=== PATIENT | male | born 1975 | race Caucasian/White ===

== ENCOUNTER 2017-07-02 19:33 | Emergency (ER) | payer BC, OTHER ==
--- NOTE | 2017-07-02 20:20 | EDM.PDOC ---
ED HPI GENERAL MEDICAL PROBLEM - General Chief Complaint: Lower Extremity Injury/Pain Stated Complaint: RIGHT LEG PAIN Time Seen by Provider: 07/02/17 19:45 Source of Information: Reports: Patient History Limitations: Reports: No Limitations - History of Present Illness INITIAL COMMENTS - FREE TEXT/NARRATIVE: Patient is a 42-year-old male with history of varicose veins to the right inner calf. States while in [place] he believes he may overexerted himself with golfing. Developed some increased swelling to the right calf and tenderness along the varicosities. Some faint redness present. Symptoms have persisted. He did participate in a stock car race and then proceeded to drive home 21 hours back to [place]. He's had increasing pain noted with mild increase in swelling noted. Does have pain along the inner aspect of his left leg up to the upper thigh. He has no history of DVT or PE. No open sores. Denies any chest pain or shortness of breath. He has no history of any hypercoagulable disorders. Does not take any medications. Nor does he have any additional past medical history. SH noncontributory. Denies smoking history and/or rec drug use. Alcohol use is sporadic. There has been no recent trauma to the affected area. Denies any fever or chills or redness extending up his leg. Right Lower Leg Pain Score (Numeric/FACES): 3 - Related Data Allergies Allergy/AdvReac Type Severity Reaction Status Date / Time No Known Allergies Allergy Verified 07/02/17 19:39 Home Meds: Home Meds . [No Known Home Meds] 07/02/17 [History] Past Medical History HEENT History: Reports: Impaired Vision Other HEENT History: Wears glasses Social & Family History - Tobacco Use Smoking Status *Q: Never Smoker - Recreational Drug Use Recreational Drug Use: No Review of Systems - Review of Systems Review Of Systems: ROS reveals no pertinent complaints other than HPI. ED EXAM, GENERAL - Physical Exam Exam: See Below Exam Limited By: No Limitations General Appearance: Alert, WD/WN, No Apparent Distress Ears: Hearing Grossly Normal Nose: Normal Inspection Throat/Mouth: Normal Voice, No Airway Compromise Neck: Normal Inspection, Supple Respiratory/Chest: No Respiratory Distress, Lungs Clear, Normal Breath Sounds, No Accessory Muscle Use Cardiovascular: Normal Peripheral Pulses, Regular Rate, Rhythm, No Murmur Peripheral Pulses: 4+: Posterior Tibial (L), Posterior Tibial (R) GI/Abdominal: Normal Bowel Sounds, Soft, Non-Tender, No Organomegaly, No Distention Extremities: Normal Range of Motion, No Pedal Edema, Normal Capillary Refill, Other (Varicosities noted to the right inner calf. Increased swellinga and faint redness noted. No increased warmth noted. Pain with palpation of the inner aspect of the inner upper leg. Questionalbe palpable cord. ) Neurological: Alert, Oriented, CN II-XII Intact, Normal Cognition, No Motor/ Sensory Deficits Psychiatric: Normal Affect, Normal Mood Skin Exam: Warm, Dry, Intact Course - Vital Signs Last Recorded V/S: Last Vital Signs Temp 98.0 F 07/02/17 19:40 Pulse 50 L 07/02/17 19:40 Resp 16 07/02/17 19:40 BP 150/101 H 07/02/17 19:40 Pulse Ox 100 07/02/17 19:40 - Orders/Labs/Meds Orders: Active Orders 24 hr Category Date Time Status VL Duplex Lwr Ext Veins Ltd Rt [US] Stat Exams 07/02/17 20:17 Taken Labs: Laboratory Tests 07/02/17 07/02/17 Range/Units 20:20 20:20 WBC 7.05 (4.23-9.07) K/mm3 RBC 5.13 (4.63-6.08) M/mm3 Hgb 14.9 (13.7-17.5) gm/L Hct 44.2 (40.1-51.0) % MCV 86.2 (79.0-92.2) fl MCH 29.0 (25.7-32.2) pg MCHC 33.7 (32.2-35.5) g/dl RDW Std Deviation 42.0 (35.1-43.9) fL Plt Count 195 (163-337) K/mm3 MPV 10.2 (9.4-12.3) fl Neut % (Auto) 56.4 (34.0-67.9) % Lymph % (Auto) 30.9 (21.8-53.1) % Calloway % (Auto) 10.6 (5.3-12.2) % Eos % (Auto) 1.7 (0.8-7.0) Baso % (Auto) 0.3 (0.1-1.2) % Neut # (Auto) 3.97 (1.78-5.38) K/mm3 Lymph # (Auto) 2.18 (1.32-3.57) K/mm3 Calloway # (Auto) 0.75 (0.30-0.82) K/mm3 Eos # (Auto) 0.12 (0.04-0.54) K/mm3 Baso # (Auto) 0.02 (0.01-0.08) K/mm3 Sodium 144 (136-145) mEq/L Potassium 4.1 (3.5-5.1) mEq/L Chloride 107 (98-107) mEq/L Carbon Dioxide 29 (21-32) mEq/L Anion Gap 12.1 (5-15) BUN 13 (7-18) mg/dL Creatinine 1.0 (0.7-1.3) mg/dL Est Cr Clr Drug Dosing 106.53 mL/min Estimated GFR (MDRD) > 60 (>60) mL/min BUN/Creatinine Ratio 13.0 L (14-18) Glucose 101 (74-106) mg/dL Calcium 8.7 (8.5-10.1) mg/dL Total Bilirubin 0.7 (0.2-1.0) mg/dL AST 20 (15-37) U/L ALT 26 (16-63) U/L Alkaline Phosphatase 70 (46-116) U/L C-Reactive Protein 0.4 (<1.0) mg/dL Total Protein 7.1 (6.4-8.2) g/dl Albumin 3.9 (3.4-5.0) g/dl Globulin 3.2 gm/dL Albumin/Globulin Ratio 1.2 (1-2) Meds: Medications Discontinued Medications Generic Name Dose Route Start Last Admin Trade Name Freq PRN Reason Stop Dose Admin Aspirin 81 mg 07/02/17 21:44 Aspirin PO 07/02/17 21:45 ONETIME ONE - Re-Assessments/Exams Free Text/Narrative Re-Assessment/Exam: Will obtain CBC, C14, CRP, and ultrasound of the right lower leg. Labs reviewed essentially normal. Ultrasound of the right lower leg impression: No evidence of deep venous thrombosis Superficial thrombophlebitis Will discharge patient home with instructions as documented. Departure - Departure Time of Disposition: 21:41 Disposition: Home, Self-Care 01 Condition: Good Clinical Impression: Superficial thrombophlebitis of right leg - Discharge Information Instructions: Phlebitis Referrals: PCP,None [Primary Care Provider] - Forms: ED Department Discharge, ED Return to Work/School Form Additional Instructions: You have superficial thrombophlebitis. This is blood clots within the superficial veins of the lower leg. Treatment will consist of aspirin 81 mg daily and compression stockings. I have provided a prescription for compression stockings to be picked up at [facility] here in [place]. May apply warm compresses to the affected area as needed throughout the course the day. Elevate when able to reduce any swelling. Where the compression stockings as instructed. Symptoms should improve over the next few weeks. Please follow up with primary care provider in one week for reevaluation. Return to the ED if you develop increased swelling, worsening pain, shortness of breath, or chest pain. Suggest wearing compression stockings when traveling long distances to prevent blood clots. - My Orders Last 24 Hours: My Active Orders 07/02/17 20:17 VL Duplex Lwr Ext Veins Ltd Rt [US] Stat - Assessment/Plan Last 24 Hours: My Active Orders 07/02/17 20:17 VL Duplex Lwr Ext Veins Ltd Rt [US] Stat
[2017-07-02] MEDS ORDERED: Aspirin 81 MG Tab.Chew PO ONE (21:44)
--- NOTE | 2017-07-03 07:10 | US ---
Right lower extremity deep venous ultrasound: Duplex and color flow imaging was obtained of the right common femoral, superficial femoral, popliteal, posterior tibial and peroneal veins. Left common femoral vein was also evaluated. Greater saphenous vein also was evaluated. Clot is identified throughout the greater saphenous vein with clot extending into the lesser saphenous vein and calf. Deep veins show normal phasic flow, augmentation and compression. Impression: 1. Superficial thrombophlebitis throughout the greater saphenous vein and lesser saphenous vein into the calf. 2. No findings of deep venous thrombosis are seen. Diagnostic code #3 Agree with preliminary report issued by [facility] ([facility] preliminary report dictated on 07/02/17, 10:38 PM Central Time)
== END 2017-07-02 22:00 | disposition home or self-care (01) ==
LOC: JD.ED 19:33
DX: I80.01 Phlebitis and thrombophlebitis of superficial vessels of right lower extremity (principal)
CPT/HCPCS: 36415; 80053; 85025; 86140; 93971; 96374; 99284; A9270; 99283